=== PATIENT | male | born 1940 | race Caucasian/White ===

== ENCOUNTER 2017-04-07 04:17 | Inpatient (IN) | payer MEDICARE, OTHER ==
[~2017-04-07] VITALS: Ht 177.8 cm; Wt 61.7 kg
[2017-04-07] MEDS ORDERED: MAGNESIUM HYDROXIDE 30 ML UDC PO PRN (07:00)
[2017-04-07] MEDS ORDERED: TEMAZEPAM 7.5 MG CAPSULE PO PRN (07:00)
[2017-04-07] MEDS ORDERED: MAG HYDROX/AL HYDROX/SIMETH 30 ML UDC PO PRN (07:00)
[2017-04-07] MEDS ORDERED: LORAZEPAM 0.5 MG TABLET PO PRN (07:00)
--- NOTE | 2017-04-07 07:30 | NUR ---
POLITICAL AIDE-NOTES RECEIVED PATIENT STANDING IN HIS ROOM ALERT ORIENTED X4,AMBULATORY WITH STEADY GAIT.CALM NO ACUTE DISTRESS NOTED.UPON FACE TO FACE ASSESSMENT PATIENT STATED" I'M HERE BECAUSE OF FINANCIAL ISSUES AND DID TRY TO OVERDOSE WITH PILLS".PATIENT DENIES SI/HI AT THIS TIME.PATIENT WAS ORIENTED IN THE UNIT AND UNIT POLICIES. WILL CONT. MONITORING Q 15 MINS. FOR SAFETY AND BEHAVIOR.
[2017-04-07 08:01] LABS: CHOLESTEROL 172 mg/dL (<200); HDL CHOLESTEROL 51 mg/dL (40-60); LDL 98 mg/dL (0-99); TRIGLYCERIDES 147 mg/dL (30-150)
[2017-04-07] MEDS ORDERED: AMLO2.5T PO (08:39)
[2017-04-07] MEDS ORDERED: MULT-24 PO (08:39)
[2017-04-07] MEDS ORDERED: MIRT15TA7 PO (08:39)
[2017-04-07] MEDS ORDERED: TAMS-12 PO (08:39)
[2017-04-07] MEDS: AMLODIPINE BESYLATE 2.5 MG TABLET PO SCH (10:30)
[2017-04-07] MEDS: SERTRALINE HCL 25 MG TABLET PO SCH (14:55)
--- NOTE | 2017-04-07 15:44 | NUR ---
UR Review: TAMICA contacted Corrina Giraldo; [phone], the pt's ed case manager from [facility]. TAMICA told Corrina that she will fax over the clinicals for pt, but informed her that psych and medical H&P is not available yet. TAMICA stated that she will fax them over once they are available. Corrina stated that it was alright to do so. TAMICA faxed over a face sheet, hold paperwork, medication list and a progress note to . TAMICA will follow up.
--- NOTE | 2017-04-07 15:44 | NUR ---
Initial Discharge Plan: Patient lives alone in an apartment; [address] [facility], [id number] and would like to return upon discharge. extension worker spoke with patients ex- Riri,[phone], who confirmed pt's residence and stated that she supported him returning to the apartment, but expressed concerned regarding pt's tendency to self-medicate. SW will put together a referral for patient to address his substance use and past alcohol use. SW will also refer patient to Narcotics Anonymous to address smoking. SW will help form a safe and proper discharge plan.
[2017-04-07 16:00] VITALS: BP 118/72
[2017-04-07 20:00] VITALS: BP 137/80
[2017-04-07] MEDS ORDERED: TAMSULOSIN 0.4 MG CAP.SR.24H ONE (20:57)
[2017-04-07] MEDS: TAMSULOSIN 0.4 MG CAP.SR.24H PO SCH (21:02)
[2017-04-07] MEDS: ACETAMINOPHEN 325 MG TABLET PO PRN (23:29)
[2017-04-08 06:48] LABS: BASOPHILS # (AUTO) 0.1 /CMM (0.0-0.2); BASOPHILS % (AUTO) 0.8 % (0.0-2.0); EOSINOPHILS # (AUTO) 0.4 /CMM (0.0-0.7); EOSINOPHILS % (AUTO) 4.2 % (0.0-6.0); HEMATOCRIT 39 % (39-51); HEMOGLOBIN 13.5 g/dL (13.5-17.5); LYMPHOCYTES # (AUTO) 2.3 /CMM (0.8-4.8); LYMPHOCYTES % (AUTO) 26.4 % (20.0-44.0); MEAN CORPUSCULAR HEMOGLOBIN 35 PG (26.0-33.0); MEAN CORPUSCULAR HGB CONC 35 g/dl (31.0-36.0); MEAN CORPUSCULAR VOLUME 100 fL (80-96); MONOCYTES # (AUTO) 0.8 /CMM (0.1-1.30); MONOCYTES % (AUTO) 8.8 % (2.0-12.0); NEUTROPHILS # (AUTO) 5.1 /CMM (1.8-8.9); NEUTROPHILS % (AUTO) 59.8 % (43.0-81.0); PLATELET COUNT (AUTO) 166 /CMM (150-450); RED BLOOD CELL COUNT(AUTO) 3.91 MIL/uL (4.5-6.0); WHITE BLOOD COUNT (AUTO) 8.6 K/uL (4.3-11.0)
[2017-04-08 07:14] LABS: ALANINE AMINOTRANSFERASE 28 U/L (12-78); ALBUMIN 3.3 g/dL (3.4-5.0); ALKALINE PHOSPHATASE 88 U/L (46-116); ASPARTATE AMINOTRANSFERASE 31 U/L (15-37); BILIRUBIN,TOTAL 0.8 mg/dL (0.2-1.0); CALCIUM, SERUM 8.4 mg/dL (8.5-10.1); CARBON DIOXIDE 26 mmol/L (21-32); CHLORIDE 101 mmol/L (98-107); CREATININE 0.8 mg/dL (0.6-1.3); GLUCOSE 86 mg/dL (74-106); SODIUM SERUM 134 mmol/L (136-145); UREA NITROGEN, BLOOD 22 mg/dL (7-18)
[2017-04-08 08:00] VITALS: BP 123/67
[2017-04-08] MEDS: MULTIVITAMINS,THERAGRAN 1 UDTAB TABLET PO SCH (09:17)
[2017-04-08] MEDS: AMLODIPINE BESYLATE 2.5 MG TABLET PO SCH (09:18)
[2017-04-08] MEDS: NICOTINE PATCH (21MG) 21 MG PATCH.TD24 TD SCH (09:20)
[2017-04-08] MEDS: SERTRALINE HCL 25 MG TABLET PO SCH (13:00)
[2017-04-08 16:13] VITALS: BP 149/98
--- NOTE | 2017-04-08 18:02 | NUR ---
CALLED DR YAK[facility] OF [facility] INR-2.20, APTT-39 AND ASKED IF IT OKAY TO HOLD COUMADIN, DR STATED GIVE ALL DOSE, CHARGE NURSE NOTIFIED
[2017-04-08 20:00] VITALS: BP 147/96
[2017-04-08] MEDS: TAMSULOSIN 0.4 MG CAP.SR.24H PO SCH (21:41)
[2017-04-08] MEDS: ACETAMINOPHEN 325 MG TABLET PO PRN (21:59)
[2017-04-09 08:00] VITALS: BP 131/81
[2017-04-09] MEDS: MULTIVITAMINS,THERAGRAN 1 UDTAB TABLET PO SCH (08:23)
[2017-04-09] MEDS: NICOTINE PATCH (21MG) 21 MG PATCH.TD24 TD SCH ×2 (08:23→08:26)
[2017-04-09] MEDS: AMLODIPINE BESYLATE 2.5 MG TABLET PO SCH (08:23)
[2017-04-09] MEDS: SERTRALINE HCL 25 MG TABLET PO SCH (12:29)
[2017-04-09 16:00] VITALS: BP 158/99
[2017-04-09 20:09] VITALS: BP 143/92
[2017-04-09] MEDS: TAMSULOSIN 0.4 MG CAP.SR.24H PO SCH (21:46)
--- NOTE | 2017-04-10 07:03 | NUR ---
RN GPS NOTES PT. REFUSED AM LABS ENCOURAGED FOR LABS DRAW ,PT. STATED I DON'T WANT IT, ENCOURAGED FOR AM LABS EXPLAINED RISKS AND BENEFITS STILL REFUSED .
[2017-04-10 07:43] VITALS: BP 144/90
[2017-04-10] MEDS: MULTIVITAMINS,THERAGRAN 1 UDTAB TABLET PO SCH (08:40)
[2017-04-10] MEDS: AMLODIPINE BESYLATE 2.5 MG TABLET PO SCH (08:40)
[2017-04-10] MEDS: NICOTINE PATCH (21MG) 21 MG PATCH.TD24 TD SCH (08:47)
[2017-04-10] MEDS: SERTRALINE HCL 25 MG TABLET PO SCH (12:42)
[2017-04-10 14:22] LABS: CALCIUM, SERUM 9.4 mg/dL (8.5-10.1); CARBON DIOXIDE 27 mmol/L (21-32); CHLORIDE 97 mmol/L (98-107); CREATININE 0.9 mg/dL (0.6-1.3); GLUCOSE 91 mg/dL (74-106); POTASSIUM 4.5 mmol/L (3.5-5.1); SODIUM SERUM 134 mmol/L (136-145); UREA NITROGEN, BLOOD 19 mg/dL (7-18)
--- NOTE | 2017-04-10 14:37 | NUR ---
Discharge Note: Patient will be discharged to [address] [facility], [id number] . Patient will be transported via private vehicle and will be picked up by his ex-, Riri, . Patient does not have a psychiatrist that he sees. 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 Patient was given referrals for [facility] to discuss his substance use/overdose; [address] [place] [address], on 04/12/17 at 9am for intake. Patient was also referred to a Nicotine Anonymous meeting on 04/17/17 at 6:30pm at [address] [place] [address] to address his smoking habits.
[2017-04-10 15:40] VITALS: BP 125/86
--- NOTE | 2017-04-10 16:25 | NUR ---
GPS/RN PATIENT CLEARED FOR DISCHARGE HOME BY DR SANCHEZ AND DR RIVERA MEDICATIONS RECONCILED BY BOTH DR'S,PRESCRIPTIONS INCLUDED IN PACKET. D/C PACKET, AFTERCARE AND MEDICATIONS REVIEWED AND EXPLAINED TO PATIENT AND EX , VERBALIZED UNDERSTANDING. PATIENT DENIES SI/HI/AH AT TIME OF DISCHARGE, PSYCHIATRIC TREATMENT PLANS MET, LEFT UNIT CALM, COOPERATIVE, NO DISTRESS WITH EX AND STAFF AT SIDE. discharged to [address] [facility] [facility], [id number] . Patient will be transported via private vehicle and will be picked up by his ex-, Riri, .
--- NOTE | 2017-04-14 11:47 | NUR ---
UR Review: TAMICA faxed over discharge summary to Corrina Giraldo, Fax #
== END 2017-04-10 16:25 | disposition home or self-care (01) | DRG 885 ==
LOC: GPS 06:21
PROVIDERS: ADMIT Psychiatry & Neurology Psychosomatic Medicine; ATTEND Internal Medicine
DX: F33.2 Major depressive disorder, recurrent severe without psychotic features (principal); F23 Brief psychotic disorder; I10 Essential (primary) hypertension; F41.9 Anxiety disorder, unspecified; N40.0 Benign prostatic hyperplasia without lower urinary tract symptoms; Z73.6 Limitation of activities due to disability; Z91.5 Personal history of self-harm
CPT/HCPCS: 36415; 80048-TC; 80053-TC; 80061-TC; 85025-TC; 87081-TC